=== PATIENT | female | born 1950 | race Caucasian/White ===

== ENCOUNTER 2022-07-22 13:59 | Inpatient (IN) | payer OTHER, MEDICAID ==
[~2022-07-22] VITALS: Ht 162.6 cm; Wt 52.2 kg
--- NOTE | 2022-07-22 14:37 | NUR ---
Placed in room 04 . Placed on benzene operator, blood pressure machine and pulse oximeter. To gown for exam. Side rails up.
--- NOTE | 2022-07-22 14:39 | NUR ---
Pt brought by self , A&Ox4, pt presents to ER with palpitations and bodyaches,pt has Hx of fibromyalgia, pt skin pink and warm, cap refill <3, VSS , will cont to monitor
[2022-07-22 14:42] VITALS: BP_SYST 166
--- NOTE | 2022-07-22 15:02 | NUR ---
Dr Sigala evaluating patient at bedside
[2022-07-22] MEDS ORDERED: NACL 0.9% 1,000 ML IV ONE (15:30)
[2022-07-22] MEDS ORDERED: KETOROLAC TROMETHAMINE 30 MG VIAL IVP ONE (15:30)
[2022-07-22] MEDS ORDERED: ONDANSETRON HCL 4 MG/2 ML VIAL IVP ONE (15:30)
[2022-07-22] MEDS ORDERED: LORazepam 2 MG/ML VIAL IVP ONE ×2 (15:30→18:45)
--- NOTE | 2022-07-22 16:09 | NUR ---
Pt medicated as ordered, well tolerated, will cont to monitor
[2022-07-22 16:24] LABS: BASOPHILS # (AUTO) 0.1 K/uL (0.0-0.2); BASOPHILS % (AUTO) 0.8 % (0.0-2.0); EOSINOPHILS % (AUTO) 0.5 % (0.0-4.0); HEMATOCRIT 39.6 % (36-48); HEMOGLOBIN 13.1 g/dL (12.0-16.0); LYMPHOCYTES # (AUTO) 1.3 K/uL (1.0-5.5); LYMPHOCYTES % (AUTO) 20.1 % (20.5-51.5); MEAN CORPUSCULAR HEMOGLOBIN 28 pg (27-31); MEAN CORPUSCULAR HGB CONC 33 % (32-36); MEAN CORPUSCULAR VOLUME 85 fL (79.0-98.0); MONOCYTES # (AUTO) 0.4 K/uL (0.0-1.0); NEUTROPHILS # (AUTO) 4.5 K/uL (1.8-7.7); NEUTROPHILS % (AUTO) 71.6 % (40.0-70.0); PLATELET COUNT (AUTO) 285 K/uL (130-430); RED BLOOD CELL COUNT(AUTO) 4.67 MIL/uL (4.2-6.2); RED CELL DISTRIBUTION WIDTH 14.6 % (9.0-15.0); WHITE BLOOD COUNT (AUTO) 6.3 K/uL (4.8-10.8)
[2022-07-22 16:28] LABS: ANION GAP 8 (5-15); CALCIUM 10.7 mg/dL (8.4-11.0); CHLORIDE 94 mmol/L (98-107); CREATININE 0.52 mg/dL (0.55-1.30); GLUCOSE 91 mg/dL (70-99); UREA NITROGEN, BLOOD 6 mg/dL (8-21)
[2022-07-22 16:42] LABS: GFR AFRICAN AMERICAN 150 mL/min (>90)
[2022-07-22 16:43] LABS: ALANINE AMINOTRANSFERASE 21 U/L (12-78); ALBUMIN 3.8 g/dL (3.4-4.8); ASPARTATE AMINOTRANSFERASE 26 U/L (10-37); FREE T4 (FREE THYROXINE) 1.1 ng/dl (0.8-1.5); THYROID STIMULATING HORMONE 0.71 uIu/mL (0.36-3.74); TOTAL BILIRUBIN 0.4 mg/dL (0.0-1.0)
--- NOTE | 2022-07-22 17:37 | NUR ---
COVID AND INFLUENZA SWABS OBTAINED AND SENT TO LAB.
[2022-07-22] MEDS ORDERED: ZOLPIDEM TARTRATE 5 MG TABLET PO PRN (18:45)
[2022-07-22] MEDS ORDERED: MAGNESIUM OXIDE 400 MG TABLET PO ONE (19:00)
--- NOTE | 2022-07-22 19:22 | NUR ---
Report given to Merna ESQUIVEL
--- NOTE | 2022-07-22 21:10 | NUR ---
Meal provided to pt. Tolerated well.
[2022-07-22] MEDS ORDERED: ONDANSETRON HCL 4 MG/2 ML VIAL IVP PRN (23:15)
[2022-07-22] MEDS ORDERED: ACETAMINOPHEN 325 MG TABLET PO PRN (23:15)
[2022-07-22] MEDS ORDERED: LORazepam 2 MG/ML VIAL IVP PRN (23:15)
[2022-07-23 01:20] VITALS: BP_SYST 132
--- NOTE | 2022-07-23 01:29 | NUR ---
Admit bed requested Patient will be admitted to care of . Admitted to [facility] unit. Diagnosis : WEAKNESS, INSOMNIA Inpatient (Yes or No) Y Observation (Yes or No) N Orientation concerns or request close to nursing station (Yes or No) N Covid Status : NEG From Home (Yes or if No enter name of facility) Y
--- NOTE | 2022-07-23 03:43 | NUR ---
Patient does not wish to proceed with medical care recommended by MD Gan. Patient given information related to possible complications, up to and including , which could occur as a result of leaving hospital at this time. Patient verbalizes understanding of risks involved leaving against medical advice. Patient has signed AMA form.
[2022-07-23] MEDS ORDERED: NORMAL SALINE 5 ML DISP.SYRIN IVF SCH ×2 (06:00)
== END 2022-07-23 03:43 | disposition left against medical advice (07) | DRG 887 ==
LOC: SED 13:59 → SMU 18:45
PROVIDERS: ADMIT Preventive Medicine Preventive Medicine/Occupational Environmental Medicine; ATTEND Preventive Medicine Preventive Medicine/Occupational Environmental Medicine
DX: G47.00 Insomnia, unspecified (principal); E87.1 Hypo-osmolality and hyponatremia; Z20.822 Contact with and (suspected) exposure to COVID-19; Z88.5 Allergy status to narcotic agent; Z88.0 Allergy status to penicillin; Z91.041 Radiographic dye allergy status
CPT/HCPCS: 36415; 71045; 80053; 83735; 83880; 84439; 84443; 84484; 85025; 93005; 96361; 96374; 96375; 96376; 99285; J1885; J2060; J2405